=== PATIENT | male | born 1965 | race Hispanic/Latino ===

== ENCOUNTER → 2023-06-18 | Outpatient (CLI) | payer OTHER | END | disposition home or self-care (01) | LOC: RAH 12:43 | PROVIDERS: ATTEND Internal Medicine Cardiovascular Disease | DX: Z13.6 Encounter for screening for cardiovascular disorders (principal); R93.1 Abnormal findings on diagnostic imaging of heart and coronary circulation | CPT/HCPCS: 75571 ==

== ENCOUNTER → 2023-07-10 | Outpatient (CLI) | payer OTHER | END | disposition home or self-care (01) | LOC: RAH 08:49 → EDUNIT# 09:00 | PROVIDERS: ATTEND Internal Medicine Cardiovascular Disease | DX: R06.09 Other forms of dyspnea (principal); R00.0 Tachycardia, unspecified | CPT/HCPCS: 78452; 96374; 93017; A9500 ×2 ==

== ENCOUNTER 2023-09-12 10:00 | Day surgery (SDC) | payer OTHER ==
[2023-09-11 19:40] VITALS: BP 123/73; PULSE 100; RESP 18
[~2023-09-12] VITALS: Ht 167.6 cm; Wt 91.7 kg
[2023-09-12] VITALS (12 sets, daily range): BP systolic 108–130; BP diastolic 63–79; PULSE 82–91; RESP 14–20
[~2023-09-12 10:00] MED LIST: CLOP75TA32 PO; FLUT1BLS3 IH; GLIM4TAB36 PO; LINA145C PO; METF-444 PO; ROSU20TA73 PO; THEO400T3 PO
[2023-09-12] MEDS ORDERED: PROPOFOL 10 MG/ML 20ML VIAL IV ONE (13:08)
== END 2023-09-12 14:40 | disposition home or self-care (01) ==
LOC: DAH 10:00 → ENDO 10:00
PROVIDERS: ATTEND Internal Medicine
DX: R10.13 Epigastric pain (principal); K31.89 Other diseases of stomach and duodenum; K20.80 Other esophagitis without bleeding; K29.70 Gastritis, unspecified, without bleeding; J44.9 Chronic obstructive pulmonary disease, unspecified; R93.2 Abnormal findings on diagnostic imaging of liver and biliary tract; K31.A11 Gastric intestinal metaplasia without dysplasia, involving the antrum; K59.04 Chronic idiopathic constipation; E13.9 Other specified diabetes mellitus without complications; K63.5 Polyp of colon; E78.5 Hyperlipidemia, unspecified; E66.8 Other obesity; Z68.32 Body mass index [BMI] 32.0-32.9, adult; F17.210 Nicotine dependence, cigarettes, uncomplicated; Z80.0 Family history of malignant neoplasm of digestive organs; Z79.84 Long term (current) use of oral hypoglycemic drugs; Z79.899 Other long term (current) drug therapy; Z98.890 Other specified postprocedural states
CPT/HCPCS: 82948 ×2; 43239; J2704; A4620; A4215; A4223; A7002; A4222; A4221; A4663; J7030; A4606; J3490